=== PATIENT | male | born 1990 | race Caucasian/White ===

== ENCOUNTER → 2019-03-02 | Outpatient (CLI) | payer BC ==
[~2019-03-02] MED LIST: NAPR-243 PO; TRM50T PO
--- NOTE | 2019-03-02 14:48 | Diagnostic Imaging Report ---
PROCEDURE: US Scrotum. TECHNIQUE: Multiple Real-time grayscale images were obtained over the scrotum in various projections bilaterally. INDICATION: Right testicular pain. FINDINGS: The right testicle measures 4.4 x 2.2 x 2.8 cm. The left testicle measures 4.6 x 2.4 x 2.9 cm. The testes have normal vascularity and echogenicity. There appears to be a right-sided spermatocele. There is no hydrocele on either side. The epididymides are normal. IMPRESSION: Right spermatocele measuring 5 x 2 x 4 mm. Dictated by: Dictated on workstation # [id number]
== END ==
LOC: RAD 13:59
PROVIDERS: ATTEND Family Medicine
DX: N43.40 Spermatocele of epididymis, unspecified (principal)
CPT/HCPCS: 76870

== ENCOUNTER 2022-05-07 14:53 | Emergency (ER) | payer BC ==
[2022-05-07] MEDS ORDERED: OXYC5TAB PO (18:36)
== END 2022-05-07 15:18 | disposition left against medical advice (07) ==
LOC: EDUNIT# 14:53 → ER 15:13
DX: S89.91XA Unspecified injury of right lower leg, initial encounter (principal); X58.XXXA Exposure to other specified factors, initial encounter

== ENCOUNTER 2022-05-07 15:39 | Emergency (ER) | payer OTHER, BC ==
[~2022-05-07] VITALS: Ht 157.5 cm; Wt 68.0 kg
[2022-05-07] MEDS ORDERED: fentaNYL INJ 100 MCG/2 ML AMP IVP ONE ×2 (16:30→17:15)
--- NOTE | 2022-05-07 16:43 | ED Lower Extremity ---
General Chief Complaint: Lower Extremity Stated Complaint: RIGHT LEG PAIN Nursing Triage Note: PT TO TRIAGE WITH COMPLAINT OF RIGHT LEG INJURY. STATES SCAFFOLDING HIT HIM IN THE SIDE OF THE LEG. PT WENT TO URGENT CARE AND PRELIMINARY XRAY SHOWED POSSIBLE FRACTURE. Source: patient Exam Limitations: no limitations History of Present Illness Date Seen by Provider: May 07, 2022 Time Seen by Provider: 16:25 Initial Comments This is a 32 yo male who presented to the ER via POV for right leg pain. Assisted to ED via wheel chair. Was seen at [facility] for work-related injury and referred to ED for concern of Tib/Fib fracture. States he was at work when a scaffold fell onto his right leg. Unable to bear weight. Has tingling in toes. No other injuries reported. Allergies and Home Medications Allergies Coded Allergies: hydrocodone (Verified Allergy, Unknown, 05/07/22) NAUSEA Patient Home Medication List Home Medication List Reviewed: Yes Naproxen (Naprosyn) 500 Mg Tablet, 1 EACH PO TID PRN for PAIN Prescribed by: KP ENCARNACION on 10/03/13 0938 Oxycodone HCl (Oxycodone HCl) 5 Mg Tablet, 5 MG PO Q4H Prescribed by: GISELA ONOFRE on 05/07/22 1837 Tramadol Hcl (Ultram) 50 Mg Tab, 50 MG PO Q4-6HR PRN for PAIN Prescribed by: KP ENCARNACION on 10/03/13 0938 Review of Systems Constitutional: see HPI Past Tmlfmul-Bvbxsw-Aschkt Hx Patient Social History Tobacco Use?: No Use of E-Cig and/or Vaping dev: No Substance use?: No Alcohol Use?: No Pt feels they are or have been: No Past Medical History Reproductive Disorders: No Physical Exam Vital Signs Vital Signs - First Documented 05/07/22 05/07/22 15:50 18:52 Pulse 99 Resp 18 B/P (MAP) 136/69 (91) Pulse Ox 98 Capillary Refill : Less Than 3 Seconds Height, Weight, BMI Height: 5'10" Weight: 135lbs. oz. [id number]; 27.00 BMI Method:Stated General Appearance: WD/WN, no apparent distress HEENT: PERRL/EOMI, normal ENT inspection, pharynx normal Neck: full range of motion, normal inspection Cardiovascular: regular rate, rhythm, no murmur Respiratory: lungs clear, normal breath sounds, no respiratory distress Gastrointestinal: normal bowel sounds, non tender, soft Back: normal inspection Hips: bilateral hip non-tender, bilateral hip normal inspection, bilateral hip normal range of motion, bilateral hip no evidence of injury Legs: bilateral leg non-tender, bilateral leg normal inspection, bilateral leg normal range of motion, bilateral leg no evidence of injury Knees: bilateral knee non-tender, bilateral knee normal inspection, bilateral knee normal range of motion, bilateral knee no evidence of injury Ankles: right ankle bone tenderness, right ankle deformity, right ankle ecchymosis, right ankle pain, right ankle soft tissue tenderness, right ankle swelling, right ankle other (Skin intact ) Feet: bilateral foot other (Pedal pulses 2+ and regular, skin pink/warm/dry bilaterally, neurovascular intact bilaterally. ) Neurologic/Psychiatric: no motor/sensory deficits, alert, normal mood/affect, oriented x 3 Skin: normal color, warm/dry Progress/Results/Core Measures Results/Orders My Orders Orders - GISELA ONOFRE APRN Fentanyl Inj (Sublimaze Injection) (05/07/22 16:30) Ed Iv/Invasive Line Start (05/07/22 16:25) Tibia/Fibula, Right, 2 Views (05/07/22 16:36) Fentanyl Inj (Sublimaze Injection) (05/07/22 17:15) Oxycodone Immediate Rel Tablet (Oxyir Ta (05/07/22 18:00) Rx-Oxycodone/Apap 5-325 Mg (Rx-Percocet (05/07/22 18:00) Medications Given in ED Current Medications Medications Dose Ordered Sig/[place] Route Start Time Stop Time Status Last Admin Dose Admin Bupivacaine HCl 30 ml ONCE ONCE INJ 05/07/22 17:30 05/07/22 17:31 DC 05/07/22 17:40 30 ML Fentanyl Citrate 50 mcg ONCE ONCE IVP 05/07/22 16:30 05/07/22 16:31 DC 05/07/22 16:36 50 MCG Fentanyl Citrate 50 mcg ONCE ONCE IVP 05/07/22 17:15 05/07/22 17:16 DC 05/07/22 17:28 50 MCG Lidocaine HCl 20 ml ONCE ONCE INJ 05/07/22 17:30 05/07/22 17:31 DC 12/28/22 17:40 20 ML Oxycodone HCl 5 mg ONCE ONCE PO 05/07/22 18:00 05/07/22 18:01 DC 05/07/22 18:33 5 MG Oxycodone/ Acetaminophen 1 ea Q4H PRN PO 05/07/22 18:00 05/07/22 18:55 DC 05/07/22 18:33 1 EA Vital Signs/I&O 05/07/22 05/07/22 15:50 18:52 Pulse 99 Resp 18 B/P (MAP) 136/69 (91) 148/92 Pulse Ox 98 Blood Pressure Mean: 91 Progress Progress Note #1: Progress Note Patient examined. Refused to have boot removed until he received pain medication. States he is able to feel and move his toes. Employer at bedside. Orders placed for Fentanyl 50mcg IVP x1 now. Unable to view x-ray imaging via disc provided. Orders placed for x-ray right tib/fib,. Progress Note #2: Time: 17:[address] Ambrose orthopedic surgeon front desk representative, patient requested to have consult with Dr. Brown. Attempted call with Dr. Brown at this time, unable to make contact. Progress Note #3: Time: 17:[address] Ambrose, recommended reduction and splinting with follow-up. Will need to be nonweightbearing. Progress Note #4: Time: 17:25 Progress Note Consulted with Dr. Rubalcava to assist with reduction and splinting. Was able to achieve adequate pain control with hematoma block with 50-50 solution of bupivocaine and lidocaine 1%. Tolerated well. Was placed in stirrup splint. Neurovascular intact pre and post hematoma block and splint application. Discharge plan of care reviewed and he is agreeable with plan. Was able to make contact with Dr. Brown, patient to call office for follow-up. Discharge plan care reviewed with patient and he is agreeable with plan, no concerns voiced at time of discharge. Diagnostic Imaging Diagonstic Imaging: Xray Comments [facility] [place], [place] NAME: MIGUEL CERVANTES MED REC#: [id number] PT STATUS: REG ER : 1990 PHYSICIAN: GISELA ONOFRE CUSTOM DESIGNER ADMIT DATE: 05/07/22/ER Signed Date of Exam:05/07/22 TIBIA/FIBULA, RIGHT, 2 VIEWS EXAMINATION: Right tibia and fibula radiograph EXAM DATE: 05/07/2022 5:03 PM COMPARISON: None available. HISTORY: Leg pain TECHNIQUE: 4 views FINDINGS: There is an acute fracture of the distal right fibula. Demonstrates mild lateral angulation with anterior displacement measuring 1.2 cm. There is an acute nondisplaced fracture of the distal right tibia at the medial malleolus with 1.0 cm of lateral displacement. There is separation of the distal tibial fibular joint with some disruption of the ankle mortise. There is soft tissue swelling about the right ankle. IMPRESSION: 1. Acute displaced fractures of the distal right fibula and distal left tibia. Dictated by: Dictated on workstation # [id number] Dict: 05/07/221704 Trans: 05/07/221714 CV [id number] Interpreted by: CORINA WHITMORE DO Electronically signed by: CORINA WHITMORE DO 05/07/221714 Departure Impression Primary Impression: Fracture of tibia and fibula Disposition: 01 HOME, SELF-CARE Condition: Improved Departure-Patient Inst. Decision time for Depature: 18:29 Referrals: FRANKI GARRETT MD (PCP/Family) Primary Care Physician Patient Instructions: Fibula Fracture (DC), Tibia Fracture Add. Discharge Instructions: Plan: 1. Discharge home. Non weight bearing with crutches. 2. Follow up with Ortho provider of choice next week. Dr. Brown, will plan to repair next week. 3. Keep affected site elevated above your heart over the next 72 hours to reduce swelling and pain. This is when the most swelling will occur. 4. Keep splints or dressings dry. May cover with plastic bag to shower. 5. Use ice 20 minutes at a time for swelling and pain. 6. Do no walk on leg splints-use crutches. 7. Wiggle toes often to prevent swelling. 8. If extremity becomes numb, cold, more painful, blanched or discolored or excessively swollen, contact your physician or return to the ER. 9. May take Tylenol or Ibuprofen as needed for pain per package. You can take Oxycodone 5mg every 4 hours as needed, you can take with Tylenol or Ibuprofen. DO NOT EXCEED 3000mg of TYLENOL in 24 hours. 10. Return to ER for any new, concerning, or worsening symptoms. All discharge instructions reviewed with patient and/or family. Voiced understanding. Scripts Oxycodone HCl (Oxycodone HCl) 5 Mg Tablet 5 MG PO Q4H for 5 Days, #30 TAB 0 Refills Prov: GISELA ONOFRE APRN 05/07/22 GISELA ONOFRE APRN May 07, 2022 16:43
--- NOTE | 2022-05-07 17:09 | Diagnostic Imaging Report ---
EXAMINATION: Right tibia and fibula radiograph EXAM DATE: 05/07/2022 5:03 PM COMPARISON: None available. HISTORY: Leg pain TECHNIQUE: 4 views FINDINGS: There is an acute fracture of the distal right fibula. Demonstrates mild lateral angulation with anterior displacement measuring 1.2 cm. There is an acute nondisplaced fracture of the distal right tibia at the medial malleolus with 1.0 cm of lateral displacement. There is separation of the distal tibial fibular joint with some disruption of the ankle mortise. There is soft tissue swelling about the right ankle. IMPRESSION: 1. Acute displaced fractures of the distal right fibula and distal left tibia. Dictated by: Dictated on workstation # [id number]
[2022-05-07] MEDS ORDERED: LIDOCAINE 1% INJ 20 ML VIAL INJ ONE (17:30)
[2022-05-07] MEDS ORDERED: BUPIVACAINE 0.5% 30 ML (SENSORCAINE) VIAL INJ ONE (17:30)
[2022-05-07] MEDS ORDERED: RX-OXYCODONE/APAP 5-325 MG #4 TAB PK PO PRN (18:00)
[2022-05-07] MEDS ORDERED: OXYC5TAB PO (18:36)
[2022-05-07 18:52] VITALS: BP 148/92
== END 2022-05-07 18:55 | disposition home or self-care (01) ==
LOC: EDUNIT# 15:39 → ER 15:41
DX: S82.302A Unspecified fracture of lower end of left tibia, initial encounter for closed fracture (principal); S82.832A Other fracture of upper and lower end of left fibula, initial encounter for closed fracture; W22.8XXA Striking against or struck by other objects, initial encounter
CPT/HCPCS: 27752; 29515; 64450; 73590